=== PATIENT | male | born 1970 | race Caucasian/White ===

== ENCOUNTER 2017-08-27 11:08 | Inpatient (IN) | payer OTHER, MEDICAID ==
[2017-08-27 12:26] LABS: ADD MAN DIFF? NO
[2017-08-27 12:31] LABS: WHITE BLOOD COUNT 11.1 10^3/ul (4.8-10.8)
[2017-08-27 12:31] LABS: BASOPHILS % 0.3 % (0.0-2.0); EOSINOPHILS # 0.1 10^3/ul (0.0-0.5); EOSINOPHILS % 1.2 % (0.0-7.0); HEMATOCRIT 32.1 % (42.0-52.0); HEMOGLOBIN 10.9 g/dl (14.0-18.0); LYMPHOCYTES # 1.4 10^3/ul (0.8-2.9); LYMPHOCYTES % 12.4 % (15.0-51.0); MEAN CORPUSCULAR HEMOGLOBIN 28.5 pg (29.0-33.0); MEAN PLATELET VOLUME 8.4 fl (7.4-10.4); MONOCYTE # 0.7 10^3/ul (0.3-0.9); MONOCYTES % 6.1 % (0.0-11.0); NEUTROPHIL # 8.9 10^3/ul (1.6-7.5); NEUTROPHILS % 79.6 % (39.0-77.0); PLATELET COUNT 277 10^3/UL (140-415); RED BLOOD COUNT 3.82 10^6/ul (4.70-6.10); RED CELL DISTRIBUTION WIDTH 14.9 % (11.5-14.5)
[2017-08-27 12:49] LABS: INR 1.16; PARTIAL THROMBOPLASTIN TIME 34.3 Sec (25.0-35.0); PT RATIO 1.2
[2017-08-27 12:54] LABS: ALANINE AMINOTRANSFERASE 58 IU/L (13-69); ALBUMIN 2.9 g/dl (3.3-4.9); ALBUMIN/GLOBULIN RATIO 0.59; ALKALINE PHOSPHATASE 269 IU/L (42-121); ANION GAP 13 (8-16); ASPARTATE AMINO TRANSFERASE 35 IU/L (15-46); BLOOD UREA NITROGEN 40 mg/dl (7-20); CALCIUM 7.7 mg/dl (8.4-10.2); CARBON DIOXIDE 19 mmol/L (21-31); CHLORIDE 104 mmol/L (97-110); CREATININE 3.78 mg/dl (0.61-1.24); GLUCOSE 89 mg/dl (70-220); POTASSIUM 4.4 mmol/L (3.5-5.1); SODIUM 132 mmol/L (135-144); TOTAL PROTEIN 7.8 g/dl (6.1-8.1)
[2017-08-27 12:57] LABS: ADD UMIC YES; UR ASCORBIC ACID NEGATIVE (NEGATIVE); UR BACTERIA MODERATE /HPF (NONE SEEN); UR BILIRUBIN (Dip) NEGATIVE (NEGATIVE); UR BLOOD (Dip) NEGATIVE (NEGATIVE); UR BUDDING YEAST MODERATE /HPF (NONE SEEN); UR CLARITY TURBID (CLEAR); UR COLOR YELLOW (YELLOW); UR GLUCOSE (Dip) NEGATIVE (NEGATIVE); UR KETONES (Dip) NEGATIVE (NEGATIVE); UR LEUKOCYTE ESTERASE (Dip) 3+ Leu/ul (NEGATIVE); UR NITRITE (Dip) POSITIVE (NEGATIVE); UR NONSQUAMOUS EPITHELIAL CELL 1 /HPF (NONE SEEN); UR RBC 50 /HPF (0-5); UR SPECIFIC GRAVITY (Dip) 1.016 (1.003-1.030); UR TOTAL PROTEIN (Dip) 3+ mg/dl (NEGATIVE); UR UROBILINOGEN (Dip) NEGATIVE (NEGATIVE); UR WBC > 182 /HPF (0-5)
[2017-08-27 13:05] LABS: TROPONIN-I < 0.012 ng/ml (0.00-0.12)
[2017-08-27] MEDS: SODIUM CHLORIDE 0.9% 1L BAG IV* (13:32)
[2017-08-27] MEDS: CEFTRIAXONE 1 GM/50 ML (PMX) 50 ML IVPB (13:32)
[2017-08-27 13:48] LABS: LACTIC ACID 1.7 mmol/L (0.5-2.0)
[2017-08-27] MEDS: OXYCODONE/ACETAMINOPHEN (10/325) TAB PO ×3 (14:18→22:15)
[2017-08-27] MEDS: VANCOMYCIN 1 GM (PMX) 250 ML IVPB (14:20)
[2017-08-27] MEDS ORDERED: NACL 0.9% 3 ML SYG IV (14:30)
[2017-08-27] MEDS ORDERED: ACETAMINOPHEN 325 MG TAB PO ×2 (14:30→15:00)
[2017-08-27 15:12] LABS: LACTIC ACID 1.1 mmol/L (0.5-2.0)
[2017-08-27] MEDS ORDERED: GLUCAGON 1 MG INJ IM (15:30)
[2017-08-27] MEDS ORDERED: GLUCOSE GEL 15 GRAM TUBE BUCCAL (15:30)
[2017-08-27] MEDS ORDERED: DEXTROSE 50% 50 ML SYRINGE IV ×2 (15:30)
[2017-08-27] MEDS ORDERED: GLUCOSE GEL 15 GRAM TUBE PO ×2 (15:30)
[2017-08-27 15:44] LABS: HEMOGLOBIN A1C 6.1 % (0-5.9)
[2017-08-27] MEDS: SOD CHLORIDE 0.9% 1,000 ML IV (18:11)
[2017-08-27] MEDS: LORAZEPAM 1 MG TAB PO (18:27)
[2017-08-27] MEDS: HYDROCODONE/APAP (5/325) TAB PO (18:28)
[2017-08-27] MEDS ORDERED: INSULIN ASPART [NOVOLOG] 3 ML PEN SC (21:00)
[2017-08-27 21:45] LABS: SODIUM,URINE RANDOM 102 mmol/L (30-90)
[2017-08-27 21:45] LABS: CREATININE,URINE RANDOM 37.61 mg/dl (20-370)
[2017-08-27 22:14] LABS: OSMOLALITY,URINE 372 mOsm/kg (250-1200)
[2017-08-27 22:14] LABS: OSMOLALITY 285 mOsm/kg (280-295)
[2017-08-27] MEDS: FLUOXETINE 20 MG CAP PO (22:14)
[2017-08-27] MEDS: TAMSULOSIN (SR) 0.4 MG CAP PO (22:15)
[2017-08-27] MEDS: INSULIN ASPART [NOVOLOG] 3 ML PEN SC (22:27)
[2017-08-28] MEDS: ACCU-CHEK XX (02:00)
[2017-08-28] MEDS: SOD CHLORIDE 0.9% 1,000 ML IV ×3 (02:39→10:23)
[2017-08-28] MEDS: OXYCODONE/ACETAMINOPHEN (10/325) TAB PO ×4 (02:39→17:54)
[2017-08-28 06:11] LABS: ADD MAN DIFF? NO
[2017-08-28 06:35] LABS: WHITE BLOOD COUNT 10.2 10^3/ul (4.8-10.8)
[2017-08-28 06:35] LABS: BASOPHILS % 0.2 % (0.0-2.0); EOSINOPHILS # 0.1 10^3/ul (0.0-0.5); HEMATOCRIT 24.9 % (42.0-52.0); HEMOGLOBIN 8.5 g/dl (14.0-18.0); LYMPHOCYTES # 1.8 10^3/ul (0.8-2.9); LYMPHOCYTES % 17.2 % (15.0-51.0); MEAN CORPUSCULAR HEMOGLOBIN 29.4 pg (29.0-33.0); MEAN CORPUSCULAR HGB CONC 34.1 g/dl (32.0-37.0); MEAN CORPUSCULAR VOLUME 86.2 fl (82.0-101.0); MEAN PLATELET VOLUME 8.7 fl (7.4-10.4); MONOCYTE # 0.8 10^3/ul (0.3-0.9); MONOCYTES % 7.6 % (0.0-11.0); NEUTROPHIL # 7.5 10^3/ul (1.6-7.5); NEUTROPHILS % 73.7 % (39.0-77.0); PLATELET COUNT 243 10^3/UL (140-415); RED BLOOD COUNT 2.89 10^6/ul (4.70-6.10)
[2017-08-28 07:00] LABS: ALANINE AMINOTRANSFERASE 51 IU/L (13-69); ALBUMIN 2.3 g/dl (3.3-4.9); ALBUMIN/GLOBULIN RATIO 0.52; ALKALINE PHOSPHATASE 189 IU/L (42-121); ANION GAP 13 (8-16); ASPARTATE AMINO TRANSFERASE 34 IU/L (15-46); BLOOD UREA NITROGEN 37 mg/dl (7-20); CALCIUM 7.2 mg/dl (8.4-10.2); CARBON DIOXIDE 18 mmol/L (21-31); CHLORIDE 111 mmol/L (97-110); CREATININE 3.51 mg/dl (0.61-1.24); GLUCOSE 123 mg/dl (70-220); POTASSIUM 5.5 mmol/L (3.5-5.1); SODIUM 136 mmol/L (135-144); TOTAL PROTEIN 6.7 g/dl (6.1-8.1)
[2017-08-28] MEDS: ASPIRIN (EC) 325 MG TAB PO (08:37)
[2017-08-28] MEDS: LACTOBACILLUS RHAMNOSUS CAP PO (08:37)
[2017-08-28] MEDS: AMLODIPINE 10 MG TAB PO (08:37)
[2017-08-28] MEDS: FINASTERIDE 5 MG TAB PO (08:38)
[2017-08-28] MEDS: ENOXAPARIN 30 MG/0.3 ML SYG SC (08:39)
[2017-08-28] MEDS: POLYETHYLENE GLYCOL 17 GM PACKET PO (08:39)
[2017-08-28] MEDS ORDERED: FUROSEMIDE 20 MG TAB PO (09:00)
[2017-08-28] MEDS ORDERED: FAMOTIDINE 20 MG TAB PO (09:00)
[2017-08-28] MEDS: LORAZEPAM 1 MG TAB PO ×2 (10:23→22:18)
[2017-08-28] MEDS: CEFTRIAXONE 1 GM/50 ML (PMX) 50 ML IVPB (13:23)
[2017-08-28 13:52] LABS: T4 (THYROXINE) 6.6 ug/dl (5.5-11.0)
[2017-08-28 13:53] LABS: FREE T4 (FREE THYROXINE) 1.15 ng/dl (0.64-1.79)
[2017-08-28] MEDS: INSULIN ASPART [NOVOLOG] 3 ML PEN SC ×2 (17:15→21:00)
[2017-08-28] MEDS: TAMSULOSIN (SR) 0.4 MG CAP PO (21:47)
[2017-08-28] MEDS: FLUOXETINE 20 MG CAP PO (21:48)
[2017-08-29] MEDS: OXYCODONE/ACETAMINOPHEN (10/325) TAB PO ×4 (01:57→19:47)
[2017-08-29] MEDS: SOD CHLORIDE 0.9% 1,000 ML IV ×2 (01:57→10:43)
[2017-08-29] MEDS: ACCU-CHEK XX (02:00)
[2017-08-29 06:31] LABS: WHITE BLOOD COUNT 9.1 10^3/ul (4.8-10.8)
[2017-08-29 06:31] LABS: ADD MAN DIFF? NO; BASOPHILS % 0.2 % (0.0-2.0); EOSINOPHILS # 0.2 10^3/ul (0.0-0.5); EOSINOPHILS % 2.2 % (0.0-7.0); HEMATOCRIT 24.1 % (42.0-52.0); HEMOGLOBIN 8.1 g/dl (14.0-18.0); LYMPHOCYTES # 1.9 10^3/ul (0.8-2.9); LYMPHOCYTES % 20.9 % (15.0-51.0); MEAN CORPUSCULAR HEMOGLOBIN 28.9 pg (29.0-33.0); MEAN CORPUSCULAR HGB CONC 33.6 g/dl (32.0-37.0); MEAN CORPUSCULAR VOLUME 86.1 fl (82.0-101.0); MEAN PLATELET VOLUME 8.7 fl (7.4-10.4); MONOCYTE # 0.7 10^3/ul (0.3-0.9); MONOCYTES % 7.7 % (0.0-11.0); NEUTROPHIL # 6.3 10^3/ul (1.6-7.5); NEUTROPHILS % 68.7 % (39.0-77.0); PLATELET COUNT 266 10^3/UL (140-415); RED CELL DISTRIBUTION WIDTH 15.1 % (11.5-14.5)
[2017-08-29 06:50] LABS: ANION GAP 13 (8-16); BLOOD UREA NITROGEN 42 mg/dl (7-20); CALCIUM 6.7 mg/dl (8.4-10.2); CARBON DIOXIDE 16 mmol/L (21-31); CHLORIDE 110 mmol/L (97-110); CREATININE 3.32 mg/dl (0.61-1.24); GLUCOSE 200 mg/dl (70-220); MAGNESIUM 1.4 mg/dl (1.7-2.5); POTASSIUM 4.8 mmol/L (3.5-5.1); SODIUM 134 mmol/L (135-144)
[2017-08-29] MEDS: INSULIN ASPART [NOVOLOG] 3 ML PEN SC ×5 (08:32→20:49)
[2017-08-29] MEDS: ENOXAPARIN 30 MG/0.3 ML SYG SC (08:35)
[2017-08-29] MEDS: ASPIRIN (EC) 325 MG TAB PO (08:36)
[2017-08-29] MEDS: LACTOBACILLUS RHAMNOSUS CAP PO (08:38)
[2017-08-29] MEDS: AMLODIPINE 10 MG TAB PO (08:39)
[2017-08-29] MEDS: POLYETHYLENE GLYCOL 17 GM PACKET PO (08:39)
[2017-08-29] MEDS: FINASTERIDE 5 MG TAB PO (10:45)
[2017-08-29] MEDS ORDERED: LEVOFLOXACIN 750 MG TABLET PO (11:00)
[2017-08-29] MEDS: LEVOFLOXACIN 500 MG TAB PO (12:41)
[2017-08-29] MEDS: MAGNESIUM OXIDE 400 MG TAB PO (12:41)
[2017-08-29] MEDS: SENNA TAB PO (15:02)
[2017-08-29] MEDS: LORAZEPAM 1 MG TAB PO ×2 (15:02→22:15)
[2017-08-29] MEDS: FLUOXETINE 20 MG CAP PO (20:48)
[2017-08-29] MEDS: TAMSULOSIN (SR) 0.4 MG CAP PO (20:48)
[2017-08-30] MEDS: ACCU-CHEK XX (01:38)
[2017-08-30] MEDS: OXYCODONE/ACETAMINOPHEN (10/325) TAB PO ×5 (01:42→20:24)
[2017-08-30 06:14] LABS: ANION GAP 12 (8-16); BLOOD UREA NITROGEN 46 mg/dl (7-20); CALCIUM 6.7 mg/dl (8.4-10.2); CARBON DIOXIDE 16 mmol/L (21-31); CHLORIDE 110 mmol/L (97-110); CREATININE 3.25 mg/dl (0.61-1.24); GLUCOSE 145 mg/dl (70-220); MAGNESIUM 1.4 mg/dl (1.7-2.5); SODIUM 133 mmol/L (135-144)
[2017-08-30] MEDS: INSULIN ASPART [NOVOLOG] 3 ML PEN SC ×7 (08:00→20:12)
[2017-08-30] MEDS: ENOXAPARIN 30 MG/0.3 ML SYG SC (08:21)
[2017-08-30] MEDS: POLYETHYLENE GLYCOL 17 GM PACKET PO (08:21)
[2017-08-30] MEDS: LACTOBACILLUS RHAMNOSUS CAP PO (08:21)
[2017-08-30] MEDS: ASPIRIN (EC) 325 MG TAB PO (08:21)
[2017-08-30] MEDS: FINASTERIDE 5 MG TAB PO (08:22)
[2017-08-30] MEDS: AMLODIPINE 10 MG TAB PO (08:23)
[2017-08-30] MEDS: LORAZEPAM 1 MG TAB PO ×2 (13:33→18:33)
[2017-08-30] MEDS: MAGNESIUM SULFATE 2 GM/50 ML 50 ML IVPB (14:52)
[2017-08-30] MEDS: TAMSULOSIN (SR) 0.4 MG CAP PO (20:24)
[2017-08-30] MEDS: FLUOXETINE 20 MG CAP PO (20:25)
[2017-08-30] MEDS: ZOLPIDEM 5 MG TAB PO (21:00)
[2017-08-31] MEDS: ACCU-CHEK XX (00:34)
[2017-08-31] MEDS: OXYCODONE/ACETAMINOPHEN (10/325) TAB PO ×4 (05:11→23:42)
[2017-08-31] MEDS: LEVOFLOXACIN 250 MG TAB PO (05:11)
[2017-08-31 07:38] LABS: ANION GAP 13 (8-16); BLOOD UREA NITROGEN 46 mg/dl (7-20); CALCIUM 7.2 mg/dl (8.4-10.2); CARBON DIOXIDE 16 mmol/L (21-31); CHLORIDE 109 mmol/L (97-110); CREATININE 3.47 mg/dl (0.61-1.24); GLUCOSE 145 mg/dl (70-220); SODIUM 133 mmol/L (135-144)
[2017-08-31] MEDS: INSULIN ASPART [NOVOLOG] 3 ML PEN SC ×7 (08:02→20:10)
[2017-08-31] MEDS: POLYETHYLENE GLYCOL 17 GM PACKET PO (08:29)
[2017-08-31] MEDS: ENOXAPARIN 30 MG/0.3 ML SYG SC (08:30)
[2017-08-31] MEDS: FINASTERIDE 5 MG TAB PO (08:30)
[2017-08-31] MEDS: ASPIRIN (EC) 325 MG TAB PO (08:30)
[2017-08-31] MEDS: LACTOBACILLUS RHAMNOSUS CAP PO (08:30)
[2017-08-31] MEDS: HYDROCODONE/APAP (5/325) TAB PO (08:31)
[2017-08-31] MEDS: AMLODIPINE 10 MG TAB PO (08:32)
[2017-08-31] MEDS: LORAZEPAM 1 MG TAB PO (14:18)
[2017-08-31] MEDS: CEFTRIAXONE 1 GM/50 ML (PMX) 50 ML IVPB (18:00)
[2017-08-31] MEDS: FLUOXETINE 20 MG CAP PO (20:09)
[2017-08-31] MEDS: TAMSULOSIN (SR) 0.4 MG CAP PO (20:09)
[2017-09-01] MEDS: ACCU-CHEK XX (01:17)
[2017-09-01] MEDS: LORAZEPAM 1 MG TAB PO ×2 (05:00→18:19)
[2017-09-01] MEDS: OXYCODONE/ACETAMINOPHEN (10/325) TAB PO ×4 (06:02→20:45)
[2017-09-01 06:48] LABS: ADD MAN DIFF? NO
[2017-09-01 06:51] LABS: BASOPHILS % 0.4 % (0.0-2.0); EOSINOPHILS # 0.2 10^3/ul (0.0-0.5); EOSINOPHILS % 2.6 % (0.0-7.0); HEMATOCRIT 25.6 % (42.0-52.0); HEMOGLOBIN 8.7 g/dl (14.0-18.0); LYMPHOCYTES # 1.9 10^3/ul (0.8-2.9); LYMPHOCYTES % 23.2 % (15.0-51.0); MEAN CORPUSCULAR HEMOGLOBIN 28.9 pg (29.0-33.0); MEAN PLATELET VOLUME 8.6 fl (7.4-10.4); MONOCYTE # 0.7 10^3/ul (0.3-0.9); MONOCYTES % 8.6 % (0.0-11.0); NEUTROPHIL # 5.4 10^3/ul (1.6-7.5); NEUTROPHILS % 64.8 % (39.0-77.0); PLATELET COUNT 229 10^3/UL (140-415); RED BLOOD COUNT 3.01 10^6/ul (4.70-6.10); RED CELL DISTRIBUTION WIDTH 15.1 % (11.5-14.5)
[2017-09-01 06:51] LABS: WHITE BLOOD COUNT 8.4 10^3/ul (4.8-10.8)
[2017-09-01 07:40] LABS: ANION GAP 14 (8-16); BLOOD UREA NITROGEN 48 mg/dl (7-20); CALCIUM 7.2 mg/dl (8.4-10.2); CARBON DIOXIDE 15 mmol/L (21-31); CHLORIDE 109 mmol/L (97-110); CREATININE 3.64 mg/dl (0.61-1.24); GLUCOSE 154 mg/dl (70-220); MAGNESIUM 1.7 mg/dl (1.7-2.5); PHOSPHORUS 7.4 mg/dl (2.5-4.9); POTASSIUM 4.9 mmol/L (3.5-5.1); SODIUM 133 mmol/L (135-144)
[2017-09-01] MEDS: INSULIN ASPART [NOVOLOG] 3 ML PEN SC ×7 (08:00→20:50)
[2017-09-01] MEDS: ENOXAPARIN 30 MG/0.3 ML SYG SC (08:02)
[2017-09-01] MEDS: FINASTERIDE 5 MG TAB PO (08:03)
[2017-09-01] MEDS: ASPIRIN (EC) 325 MG TAB PO (08:03)
[2017-09-01] MEDS: LACTOBACILLUS RHAMNOSUS CAP PO (08:09)
[2017-09-01] MEDS: AMLODIPINE 10 MG TAB PO (08:49)
[2017-09-01] MEDS: POLYETHYLENE GLYCOL 17 GM PACKET PO (08:50)
[2017-09-01] MEDS: CEFTRIAXONE 1 GM/50 ML (PMX) 50 ML IVPB (16:31)
[2017-09-01] MEDS: ONDANSETRON 4 MG INJ IV (18:54)
[2017-09-01] MEDS: TAMSULOSIN (SR) 0.4 MG CAP PO (20:45)
[2017-09-01] MEDS: FLUOXETINE 20 MG CAP PO (20:46)
[2017-09-02] MEDS: ACCU-CHEK XX (02:00)
[2017-09-02] MEDS: OXYCODONE/ACETAMINOPHEN (10/325) TAB PO ×4 (04:26→20:44)
[2017-09-02 06:41] LABS: ANION GAP 14 (8-16); BLOOD UREA NITROGEN 50 mg/dl (7-20); CALCIUM 7.4 mg/dl (8.4-10.2); CARBON DIOXIDE 15 mmol/L (21-31); CHLORIDE 112 mmol/L (97-110); CREATININE 4.14 mg/dl (0.61-1.24); GLUCOSE 134 mg/dl (70-220); MAGNESIUM 1.7 mg/dl (1.7-2.5); PHOSPHORUS 7.5 mg/dl (2.5-4.9); POTASSIUM 5.1 mmol/L (3.5-5.1); SODIUM 136 mmol/L (135-144)
[2017-09-02] MEDS: LORAZEPAM 1 MG TAB PO (07:57)
[2017-09-02] MEDS: INSULIN ASPART [NOVOLOG] 3 ML PEN SC ×7 (07:58→20:50)
[2017-09-02] MEDS: ASPIRIN (EC) 325 MG TAB PO (08:23)
[2017-09-02] MEDS: HYDROCODONE/APAP (5/325) TAB PO ×2 (08:23→17:32)
[2017-09-02] MEDS: FINASTERIDE 5 MG TAB PO (08:23)
[2017-09-02] MEDS: LACTOBACILLUS RHAMNOSUS CAP PO (08:23)
[2017-09-02] MEDS: AMLODIPINE 10 MG TAB PO (08:24)
[2017-09-02] MEDS: ENOXAPARIN 30 MG/0.3 ML SYG SC (08:25)
[2017-09-02] MEDS: POLYETHYLENE GLYCOL 17 GM PACKET PO (08:26)
[2017-09-02] MEDS: ONDANSETRON 4 MG INJ IV ×2 (08:29→17:32)
[2017-09-02 10:10] LABS: PHOSPHORUS 7.3 mg/dl (2.5-4.9)
[2017-09-02 12:01] LABS: CREATININE,URINE RANDOM 66.98 mg/dl (20-370)
[2017-09-02 12:03] LABS: SODIUM,URINE RANDOM 53 mmol/L (30-90)
[2017-09-02 12:20] LABS: PROTEIN URINE > 600.0 mg/dl (0.0-11.9); PROTEIN/CREAT RATIO 8.95 RATIO
[2017-09-02] MEDS: SEVELAMER 800 MG TAB PO (17:32)
[2017-09-02] MEDS: CALCIUM ACETATE 667 MG CAP GTB (17:32)
[2017-09-02] MEDS: CEFTRIAXONE 1 GM/50 ML (PMX) 50 ML IVPB (17:33)
[2017-09-02] MEDS: TAMSULOSIN (SR) 0.4 MG CAP PO (20:44)
[2017-09-02] MEDS: FLUOXETINE 20 MG CAP PO (20:44)
[2017-09-02] MEDS: CITRIC ACID/SODIUM CITRATE 15 ML CUP PO (20:45)
[2017-09-02] MEDS: LIDOCAINE 2% 20 ML UROJET SYRINGE MM (21:30)
[2017-09-02] MEDS: EPOETIN 3000 UNITS/1 ML INJ (ESRD) SC (21:31)
[2017-09-03] MEDS: OXYCODONE/ACETAMINOPHEN (10/325) TAB PO ×5 (01:43→22:07)
[2017-09-03] MEDS: ACCU-CHEK XX (02:00)
[2017-09-03 03:41] LABS: PROTEIN, TOTAL 6.1 g/dL (6.1-8.1)
[2017-09-03 05:13] LABS: HAAIG REFLEX REFLEX FILED
[2017-09-03 07:23] LABS: HEPATITIS B SURFACE ANTIGEN NEGATIVE (NEGATIVE)
[2017-09-03 07:40] LABS: HEPATITIS B CORE ANTIBODY NEGATIVE (NEGATIVE)
[2017-09-03 07:43] LABS: HEPATITIS C VIRAL ANTIBODY REACTIVE (NEGATIVE); HIV 1&2 ANTIBODY NEGATIVE (NEGATIVE)
[2017-09-03] MEDS: INSULIN ASPART [NOVOLOG] 3 ML PEN SC ×7 (07:57→20:45)
[2017-09-03] MEDS: ASPIRIN (EC) 325 MG TAB PO (08:13)
[2017-09-03] MEDS: CITRIC ACID/SODIUM CITRATE 15 ML CUP PO ×3 (08:13→20:44)
[2017-09-03] MEDS: CALCIUM ACETATE 667 MG CAP GTB ×3 (08:13→17:08)
[2017-09-03] MEDS: FINASTERIDE 5 MG TAB PO (08:13)
[2017-09-03] MEDS: POLYETHYLENE GLYCOL 17 GM PACKET PO ×2 (08:14→08:19)
[2017-09-03] MEDS: AMLODIPINE 10 MG TAB PO (08:14)
[2017-09-03] MEDS: LACTOBACILLUS RHAMNOSUS CAP PO (08:14)
[2017-09-03] MEDS: ENOXAPARIN 30 MG/0.3 ML SYG SC (08:15)
[2017-09-03] MEDS: SEVELAMER 800 MG TAB PO ×3 (08:18→17:08)
[2017-09-03 08:35] LABS: ADD UMIC YES; UR ASCORBIC ACID NEGATIVE (NEGATIVE); UR BACTERIA FEW /HPF (NONE SEEN); UR BILIRUBIN (Dip) NEGATIVE (NEGATIVE); UR BLOOD (Dip) 2+ mg/dL (NEGATIVE); UR BUDDING YEAST MANY /HPF (NONE SEEN); UR CLARITY SLIGHTLY CLOUDY (CLEAR); UR COLOR YELLOW (YELLOW); UR GLUCOSE (Dip) 2+ mg/dL (NEGATIVE); UR KETONES (Dip) NEGATIVE (NEGATIVE); UR LEUKOCYTE ESTERASE (Dip) NEGATIVE Leu/ul (NEGATIVE); UR NITRITE (Dip) NEGATIVE (NEGATIVE); UR RBC 179 /HPF (0-5); UR SPECIFIC GRAVITY (Dip) 1.014 (1.003-1.030); UR TOTAL PROTEIN (Dip) 3+ mg/dl (NEGATIVE); UR UROBILINOGEN (Dip) NEGATIVE (NEGATIVE); UR WBC 4 /HPF (0-5)
[2017-09-03] MEDS: HYDROCODONE/APAP (5/325) TAB PO ×2 (10:14→18:01)
[2017-09-03] MEDS: LORAZEPAM 1 MG TAB PO (13:46)
[2017-09-03 16:17] LABS: ALBUMIN 2.1 g/dL (3.8-4.8); ALPHA-1-GLOBULINS 0.3 g/dL (0.2-0.3); ALPHA-2-GLOBULINS 0.7 g/dL (0.5-0.9); BETA 2 GLOBULINS 0.5 g/dL (0.2-0.5); BETA GLOBULINS 0.4 g/dL (0.4-0.6); GAMMA GLOBULINS 2.2 g/dL (0.8-1.7)
[2017-09-03 16:20] LABS: ANION GAP 13 (8-16); BLOOD UREA NITROGEN 48 mg/dl (7-20); CARBON DIOXIDE 16 mmol/L (21-31); CHLORIDE 111 mmol/L (97-110); CREATININE 4.09 mg/dl (0.61-1.24); GLUCOSE 94 mg/dl (70-220); POTASSIUM 4.8 mmol/L (3.5-5.1); SODIUM 135 mmol/L (135-144)
[2017-09-03] MEDS: CEFTRIAXONE 1 GM/50 ML (PMX) 50 ML IVPB (17:08)
[2017-09-03] MEDS: FLUOXETINE 20 MG CAP PO (20:44)
[2017-09-03] MEDS: GUAIFENESIN LA 600 MG TABSR PO (20:44)
[2017-09-03] MEDS: ALBUTEROL/IPRATROPIUM (NEB) 3 ML AMP HHN (20:53)
[2017-09-03 22:47] LABS: PTH CALCIUM 6.8 mg/dL (8.6-10.3)
[2017-09-04] MEDS: LORAZEPAM 1 MG TAB PO ×3 (01:37→20:58)
[2017-09-04] MEDS: ACCU-CHEK XX (02:00)
[2017-09-04] MEDS: PANTOPRAZOLE (EC) 40 MG TAB PO (03:48)
[2017-09-04] MEDS: OXYCODONE/ACETAMINOPHEN (10/325) TAB PO ×4 (07:56→21:53)
[2017-09-04] MEDS: CALCIUM ACETATE 667 MG CAP GTB ×3 (07:59→17:10)
[2017-09-04] MEDS: INSULIN ASPART [NOVOLOG] 3 ML PEN SC ×7 (08:00→21:01)
[2017-09-04] MEDS: SEVELAMER 800 MG TAB PO ×3 (08:00→17:10)
[2017-09-04] MEDS: POLYETHYLENE GLYCOL 17 GM PACKET PO ×2 (08:49→09:00)
[2017-09-04] MEDS: ASPIRIN (EC) 325 MG TAB PO (08:49)
[2017-09-04] MEDS: LACTOBACILLUS RHAMNOSUS CAP PO (08:49)
[2017-09-04] MEDS: CITRIC ACID/SODIUM CITRATE 15 ML CUP PO ×3 (08:50→20:58)
[2017-09-04] MEDS: GUAIFENESIN LA 600 MG TABSR PO ×2 (08:50→20:58)
[2017-09-04] MEDS: AMLODIPINE 10 MG TAB PO (08:50)
[2017-09-04] MEDS: ENOXAPARIN 30 MG/0.3 ML SYG SC (08:53)
[2017-09-04] MEDS: ALBUTEROL/IPRATROPIUM (NEB) 3 ML AMP HHN ×3 (14:16→20:15)
[2017-09-04 15:37] LABS: CREATININE, RANDOM URINE 64 mg/dL (20-370); PROTEIN/CREATININE RATIO 8031 mg/g creat (22-128)
[2017-09-04] MEDS: EPOETIN 3000 UNITS/1 ML INJ (ESRD) SC (16:34)
[2017-09-04] MEDS: CEFTRIAXONE 1 GM/50 ML (PMX) 50 ML IVPB (17:11)
[2017-09-04] MEDS: HYDROCODONE/APAP (5/325) TAB PO (19:34)
[2017-09-04] MEDS: FLUOXETINE 20 MG CAP PO (20:58)
[2017-09-05] MEDS: ALBUTEROL/IPRATROPIUM (NEB) 3 ML AMP HHN ×6 (00:45→20:03)
[2017-09-05] MEDS: LORAZEPAM 1 MG TAB PO ×4 (01:11→22:26)
[2017-09-05] MEDS: ACCU-CHEK XX ×2 (02:00→20:48)
[2017-09-05 05:15] LABS: ANION GAP 13 (8-16); BLOOD UREA NITROGEN 46 mg/dl (7-20); CALCIUM 7.1 mg/dl (8.4-10.2); CARBON DIOXIDE 17 mmol/L (21-31); CHLORIDE 109 mmol/L (97-110); CREATININE 4.01 mg/dl (0.61-1.24); GLUCOSE 127 mg/dl (70-220); MAGNESIUM 1.7 mg/dl (1.7-2.5); SODIUM 134 mmol/L (135-144)
[2017-09-05] MEDS: PANTOPRAZOLE (EC) 40 MG TAB PO (06:40)
[2017-09-05] MEDS: OXYCODONE/ACETAMINOPHEN (10/325) TAB PO ×3 (06:41→23:17)
[2017-09-05] MEDS: INSULIN ASPART [NOVOLOG] 3 ML PEN SC ×7 (08:00→20:48)
[2017-09-05] MEDS: CALCIUM ACETATE 667 MG CAP GTB ×3 (08:13→17:41)
[2017-09-05] MEDS: SEVELAMER 800 MG TAB PO ×3 (08:14→17:41)
[2017-09-05] MEDS: GUAIFENESIN LA 600 MG TABSR PO ×2 (08:24→20:47)
[2017-09-05] MEDS: ASPIRIN (EC) 325 MG TAB PO (08:24)
[2017-09-05] MEDS: AMLODIPINE 10 MG TAB PO (08:24)
[2017-09-05] MEDS: HYDROCODONE/APAP (5/325) TAB PO ×2 (08:25→12:32)
[2017-09-05] MEDS: LACTOBACILLUS RHAMNOSUS CAP PO (08:25)
[2017-09-05] MEDS: CITRIC ACID/SODIUM CITRATE 15 ML CUP PO ×3 (08:26→20:46)
[2017-09-05] MEDS: POLYETHYLENE GLYCOL 17 GM PACKET PO (08:30)
[2017-09-05] MEDS: ENOXAPARIN 30 MG/0.3 ML SYG SC (12:23)
[2017-09-05] MEDS: FUROSEMIDE 40 MG INJ IV (16:49)
[2017-09-05] MEDS: CEFTRIAXONE 1 GM/50 ML (PMX) 50 ML IVPB (16:53)
[2017-09-05 17:07] LABS: HAAIG REFLEX REFLEX FILED
[2017-09-05 17:47] LABS: HEPATITIS B SURFACE ANTIGEN NEGATIVE (NEGATIVE)
[2017-09-05 18:05] LABS: HEPATITIS B CORE ANTIBODY NEGATIVE (NEGATIVE)
[2017-09-05 19:07] LABS: HEPATITIS C VIRAL ANTIBODY REACTIVE (NEGATIVE)
[2017-09-05] MEDS: FLUOXETINE 20 MG CAP PO (20:48)
[2017-09-06] MEDS: ALBUTEROL/IPRATROPIUM (NEB) 3 ML AMP HHN ×6 (00:58→20:56)
[2017-09-06] MEDS: OXYCODONE/ACETAMINOPHEN (10/325) TAB PO ×3 (04:06→17:15)
[2017-09-06] MEDS: PANTOPRAZOLE (EC) 40 MG TAB PO (05:59)
[2017-09-06] MEDS: LORAZEPAM 1 MG TAB PO ×2 (05:59→21:23)
[2017-09-06 06:47] LABS: ANION GAP 15 (8-16); BLOOD UREA NITROGEN 50 mg/dl (7-20); CARBON DIOXIDE 17 mmol/L (21-31); CHLORIDE 107 mmol/L (97-110); CREATININE 3.85 mg/dl (0.61-1.24); GLUCOSE 128 mg/dl (70-220); POTASSIUM 4.5 mmol/L (3.5-5.1); SODIUM 134 mmol/L (135-144)
[2017-09-06 06:52] LABS: MAGNESIUM 1.7 mg/dl (1.7-2.5)
[2017-09-06] MEDS: INSULIN ASPART [NOVOLOG] 3 ML PEN SC ×7 (08:00→21:00)
[2017-09-06] MEDS: CALCIUM ACETATE 667 MG CAP GTB ×3 (09:01→17:10)
[2017-09-06] MEDS: SEVELAMER 800 MG TAB PO ×4 (09:01→17:56)
[2017-09-06] MEDS: CITRIC ACID/SODIUM CITRATE 15 ML CUP PO ×3 (09:03→21:21)
[2017-09-06] MEDS: FUROSEMIDE 40 MG INJ IV (09:03)
[2017-09-06] MEDS: POLYETHYLENE GLYCOL 17 GM PACKET PO (09:04)
[2017-09-06] MEDS: ASPIRIN (EC) 325 MG TAB PO (09:04)
[2017-09-06] MEDS: GUAIFENESIN LA 600 MG TABSR PO ×2 (09:04→21:22)
[2017-09-06] MEDS: LACTOBACILLUS RHAMNOSUS CAP PO (09:04)
[2017-09-06] MEDS: AMLODIPINE 10 MG TAB PO (09:05)
[2017-09-06] MEDS: ENOXAPARIN 30 MG/0.3 ML SYG SC (09:06)
[2017-09-06] MEDS: CEFTRIAXONE 1 GM/50 ML (PMX) 50 ML IVPB (17:11)
[2017-09-06] MEDS: FLUOXETINE 20 MG CAP PO (21:21)
[2017-09-07] MEDS: ALBUTEROL/IPRATROPIUM (NEB) 3 ML AMP HHN ×6 (02:00→21:22)
[2017-09-07] MEDS: ACCU-CHEK XX (02:00)
[2017-09-07] MEDS: OXYCODONE/ACETAMINOPHEN (10/325) TAB PO ×4 (02:41→22:13)
[2017-09-07] MEDS: PANTOPRAZOLE (EC) 40 MG TAB PO (06:04)
[2017-09-07 06:49] LABS: ANION GAP 15 (8-16); BLOOD UREA NITROGEN 54 mg/dl (7-20); CALCIUM 7.2 mg/dl (8.4-10.2); CARBON DIOXIDE 18 mmol/L (21-31); CHLORIDE 106 mmol/L (97-110); CREATININE 4.12 mg/dl (0.61-1.24); GLUCOSE 117 mg/dl (70-220); POTASSIUM 4.5 mmol/L (3.5-5.1); SODIUM 134 mmol/L (135-144)
[2017-09-07] MEDS: SEVELAMER 800 MG TAB PO ×4 (07:35→17:29)
[2017-09-07] MEDS: INSULIN ASPART [NOVOLOG] 3 ML PEN SC ×7 (07:35→20:53)
[2017-09-07] MEDS: CALCIUM ACETATE 667 MG CAP GTB ×4 (07:35→17:29)
[2017-09-07] MEDS: FUROSEMIDE 40 MG INJ IV (08:11)
[2017-09-07] MEDS: CITRIC ACID/SODIUM CITRATE 15 ML CUP PO ×3 (09:00→20:51)
[2017-09-07] MEDS: AMLODIPINE 10 MG TAB PO ×2 (09:00→14:28)
[2017-09-07] MEDS: LACTOBACILLUS RHAMNOSUS CAP PO ×2 (09:00→14:27)
[2017-09-07] MEDS: GUAIFENESIN LA 600 MG TABSR PO ×2 (09:00→20:51)
[2017-09-07] MEDS: ENOXAPARIN 30 MG/0.3 ML SYG SC (09:00)
[2017-09-07] MEDS: POLYETHYLENE GLYCOL 17 GM PACKET PO (09:00)
[2017-09-07] MEDS: ASPIRIN (EC) 325 MG TAB PO ×2 (09:00→14:28)
[2017-09-07] MEDS: LORAZEPAM 1 MG TAB PO ×2 (13:35→20:51)
[2017-09-07] MEDS: EPOETIN 3000 UNITS/1 ML INJ (ESRD) SC (17:32)
[2017-09-07] MEDS: FLUOXETINE 20 MG CAP PO (20:51)
[2017-09-08] MEDS: ALBUTEROL/IPRATROPIUM (NEB) 3 ML AMP HHN ×6 (01:23→20:03)
[2017-09-08] MEDS: ACCU-CHEK XX (02:15)
[2017-09-08] MEDS: OXYCODONE/ACETAMINOPHEN (10/325) TAB PO ×4 (04:45→21:48)
[2017-09-08] MEDS: PANTOPRAZOLE (EC) 40 MG TAB PO (06:00)
[2017-09-08] MEDS: CALCIUM ACETATE 667 MG CAP GTB ×3 (07:35→17:23)
[2017-09-08] MEDS: SEVELAMER 800 MG TAB PO ×3 (07:35→17:23)
[2017-09-08] MEDS: INSULIN ASPART [NOVOLOG] 3 ML PEN SC ×7 (07:35→21:00)
[2017-09-08 07:56] LABS: PTH INTACT 220 pg/mL (14-64)
[2017-09-08] MEDS: FUROSEMIDE 40 MG INJ IV (08:26)
[2017-09-08] MEDS: GUAIFENESIN LA 600 MG TABSR PO ×3 (08:30→20:38)
[2017-09-08] MEDS: POLYETHYLENE GLYCOL 17 GM PACKET PO ×2 (08:30→12:44)
[2017-09-08] MEDS: CITRIC ACID/SODIUM CITRATE 15 ML CUP PO ×3 (08:30→20:38)
[2017-09-08] MEDS: LACTOBACILLUS RHAMNOSUS CAP PO ×2 (08:30→12:42)
[2017-09-08] MEDS: ASPIRIN (EC) 325 MG TAB PO ×2 (08:30→12:43)
[2017-09-08] MEDS: ENOXAPARIN 30 MG/0.3 ML SYG SC ×2 (08:31→12:45)
[2017-09-08] MEDS: AMLODIPINE 10 MG TAB PO ×2 (08:31→12:44)
[2017-09-08 08:38] LABS: ANION GAP 15 (8-16); BLOOD UREA NITROGEN 56 mg/dl (7-20); CALCIUM 7.2 mg/dl (8.4-10.2); CARBON DIOXIDE 21 mmol/L (21-31); CHLORIDE 103 mmol/L (97-110); CREATININE 3.94 mg/dl (0.61-1.24); GLUCOSE 170 mg/dl (70-220); POTASSIUM 4.4 mmol/L (3.5-5.1); SODIUM 135 mmol/L (135-144)
[2017-09-08] MEDS: LORAZEPAM 1 MG TAB PO (13:29)
[2017-09-08] MEDS: HYDROCODONE/APAP (5/325) TAB PO (20:25)
[2017-09-08] MEDS: FLUOXETINE 20 MG CAP PO (20:38)
[2017-09-09] MEDS: ALBUTEROL/IPRATROPIUM (NEB) 3 ML AMP HHN ×6 (00:01→20:39)
[2017-09-09] MEDS: LORAZEPAM 1 MG TAB PO ×2 (01:50→08:07)
[2017-09-09] MEDS: ACCU-CHEK XX (02:00)
[2017-09-09] MEDS: PANTOPRAZOLE (EC) 40 MG TAB PO (05:56)
[2017-09-09] MEDS: OXYCODONE/ACETAMINOPHEN (10/325) TAB PO ×3 (06:06→20:30)
[2017-09-09 06:47] LABS: ALBUMIN 2.4 g/dl (3.3-4.9); ANION GAP 14 (8-16); BLOOD UREA NITROGEN 61 mg/dl (7-20); CALCIUM 6.7 mg/dl (8.4-10.2); CARBON DIOXIDE 22 mmol/L (21-31); CHLORIDE 102 mmol/L (97-110); CREATININE 3.97 mg/dl (0.61-1.24); GLUCOSE 116 mg/dl (70-220); MAGNESIUM 1.6 mg/dl (1.7-2.5); POTASSIUM 4.7 mmol/L (3.5-5.1); SODIUM 133 mmol/L (135-144)
[2017-09-09] MEDS: CALCIUM ACETATE 667 MG CAP GTB ×3 (07:35→17:04)
[2017-09-09] MEDS: INSULIN ASPART [NOVOLOG] 3 ML PEN SC ×7 (07:35→20:18)
[2017-09-09] MEDS: SEVELAMER 800 MG TAB PO ×3 (07:35→17:04)
[2017-09-09] MEDS: CITRIC ACID/SODIUM CITRATE 15 ML CUP PO ×3 (08:10→20:24)
[2017-09-09] MEDS: FUROSEMIDE 40 MG INJ IV (08:10)
[2017-09-09] MEDS: POLYETHYLENE GLYCOL 17 GM PACKET PO (08:10)
[2017-09-09] MEDS: LACTOBACILLUS RHAMNOSUS CAP PO (08:10)
[2017-09-09] MEDS: ASPIRIN (EC) 325 MG TAB PO (08:10)
[2017-09-09] MEDS: AMLODIPINE 10 MG TAB PO (08:11)
[2017-09-09] MEDS: ENOXAPARIN 30 MG/0.3 ML SYG SC (08:11)
[2017-09-09] MEDS: GUAIFENESIN LA 600 MG TABSR PO ×2 (08:11→20:24)
[2017-09-09] MEDS: MAGNESIUM SULFATE 2 GM/50 ML 50 ML IVPB (10:40)
[2017-09-09] MEDS ORDERED: LIDOCAINE 1% (MDV) 20 ML INJ (13:27)
[2017-09-09] MEDS ORDERED: FENTAnyl 50 MCG/ML VIAL (13:28)
[2017-09-09] MEDS ORDERED: MIDAZOLAM 1 MG/ML 2 ML INJ (13:28)
[2017-09-09] MEDS ORDERED: CEFAZOLIN 1 GM/50 ML (PMX) 50 ML IVPB (13:47)
[2017-09-09] MEDS ORDERED: HEPARIN 1000 UNITS/ML 10 ML INJ (14:00)
[2017-09-09] MEDS: MANNITOL 25% 50 ML INJ IV* ×2 (16:06→17:14)
[2017-09-09] MEDS: EPOETIN 3000 UNITS/1 ML INJ (ESRD) SC (17:05)
[2017-09-09] MEDS: FLUOXETINE 20 MG CAP PO (20:25)
[2017-09-10] MEDS: ALBUTEROL/IPRATROPIUM (NEB) 3 ML AMP HHN ×6 (01:39→20:55)
[2017-09-10] MEDS: LORAZEPAM 1 MG TAB PO ×3 (01:58→18:16)
[2017-09-10] MEDS: ACCU-CHEK XX (02:00)
[2017-09-10] MEDS: OXYCODONE/ACETAMINOPHEN (10/325) TAB PO ×5 (03:08→21:17)
[2017-09-10] MEDS: PANTOPRAZOLE (EC) 40 MG TAB PO (06:01)
[2017-09-10 07:28] LABS: ALBUMIN 2.5 g/dl (3.3-4.9); ANION GAP 15 (8-16); BLOOD UREA NITROGEN 46 mg/dl (7-20); CALCIUM 7.4 mg/dl (8.4-10.2); CARBON DIOXIDE 25 mmol/L (21-31); CHLORIDE 102 mmol/L (97-110); CREATININE 3.09 mg/dl (0.61-1.24); GLUCOSE 154 mg/dl (70-220); MAGNESIUM 1.9 mg/dl (1.7-2.5); PHOSPHORUS 4.4 mg/dl (2.5-4.9); POTASSIUM 4.4 mmol/L (3.5-5.1); SODIUM 138 mmol/L (135-144)
[2017-09-10] MEDS: GUAIFENESIN LA 600 MG TABSR PO ×2 (08:01→21:17)
[2017-09-10] MEDS: CITRIC ACID/SODIUM CITRATE 15 ML CUP PO ×2 (08:01→12:30)
[2017-09-10] MEDS: ASPIRIN (EC) 325 MG TAB PO (08:02)
[2017-09-10] MEDS: LACTOBACILLUS RHAMNOSUS CAP PO (08:02)
[2017-09-10] MEDS: SEVELAMER 800 MG TAB PO ×2 (08:02→12:20)
[2017-09-10] MEDS: CALCIUM ACETATE 667 MG CAP GTB ×3 (08:02→17:06)
[2017-09-10] MEDS: POLYETHYLENE GLYCOL 17 GM PACKET PO (08:02)
[2017-09-10] MEDS: ENOXAPARIN 30 MG/0.3 ML SYG SC (08:03)
[2017-09-10] MEDS: INSULIN ASPART [NOVOLOG] 3 ML PEN SC ×7 (08:04→21:00)
[2017-09-10] MEDS: FUROSEMIDE 40 MG INJ IV (09:00)
[2017-09-10] MEDS: AMLODIPINE 10 MG TAB PO (09:00)
[2017-09-10] MEDS: FLUOXETINE 20 MG CAP PO (21:17)
[2017-09-11] MEDS: ALBUTEROL/IPRATROPIUM (NEB) 3 ML AMP HHN ×6 (00:01→21:07)
[2017-09-11] MEDS: OXYCODONE/ACETAMINOPHEN (10/325) TAB PO ×4 (01:17→21:59)
[2017-09-11] MEDS: ACCU-CHEK XX (02:00)
[2017-09-11] MEDS: LORAZEPAM 1 MG TAB PO ×2 (03:54→21:04)
[2017-09-11] MEDS: PANTOPRAZOLE (EC) 40 MG TAB PO (05:23)
[2017-09-11 06:33] LABS: HEMOGLOBIN 7.7 g/dl (14.0-18.0)
[2017-09-11 06:33] LABS: HEMATOCRIT 23.2 % (42.0-52.0)
[2017-09-11 07:08] LABS: ALBUMIN 2.6 g/dl (3.3-4.9); ANION GAP 13 (8-16); BLOOD UREA NITROGEN 37 mg/dl (7-20); CALCIUM 7.3 mg/dl (8.4-10.2); CARBON DIOXIDE 25 mmol/L (21-31); CHLORIDE 105 mmol/L (97-110); CREATININE 2.68 mg/dl (0.61-1.24); GLUCOSE 164 mg/dl (70-220); MAGNESIUM 1.8 mg/dl (1.7-2.5); PHOSPHORUS 4.2 mg/dl (2.5-4.9); POTASSIUM 4.6 mmol/L (3.5-5.1); SODIUM 138 mmol/L (135-144)
[2017-09-11] MEDS: INSULIN ASPART [NOVOLOG] 3 ML PEN SC ×7 (08:17→21:00)
[2017-09-11] MEDS: FUROSEMIDE 40 MG/4 ML CUP GTB (08:18)
[2017-09-11] MEDS: LACTOBACILLUS RHAMNOSUS CAP PO (08:19)
[2017-09-11] MEDS: ASPIRIN (EC) 325 MG TAB PO (08:19)
[2017-09-11] MEDS: CALCIUM ACETATE 667 MG CAP GTB ×3 (08:19→17:30)
[2017-09-11] MEDS: GUAIFENESIN LA 600 MG TABSR PO ×2 (08:19→20:58)
[2017-09-11] MEDS: AMLODIPINE 10 MG TAB PO (08:20)
[2017-09-11] MEDS: POLYETHYLENE GLYCOL 17 GM PACKET PO (08:20)
[2017-09-11] MEDS: ENOXAPARIN 30 MG/0.3 ML SYG SC (08:21)
[2017-09-11] MEDS: HYDROCODONE/APAP (5/325) TAB PO (08:34)
[2017-09-11] MEDS: EPOETIN 3000 UNITS/1 ML INJ (ESRD) SC (17:30)
[2017-09-11] MEDS: FLUOXETINE 20 MG CAP PO (20:59)
[2017-09-12] MEDS: ALBUTEROL/IPRATROPIUM (NEB) 3 ML AMP HHN ×6 (00:28→20:47)
[2017-09-12] MEDS: OXYCODONE/ACETAMINOPHEN (10/325) TAB PO ×5 (02:00→20:45)
[2017-09-12] MEDS: ACCU-CHEK XX (02:00)
[2017-09-12] MEDS: PANTOPRAZOLE (EC) 40 MG TAB PO (05:48)
[2017-09-12 06:26] LABS: ANION GAP 13 (8-16); BLOOD UREA NITROGEN 46 mg/dl (7-20); CALCIUM 7.4 mg/dl (8.4-10.2); CARBON DIOXIDE 24 mmol/L (21-31); CHLORIDE 104 mmol/L (97-110); CREATININE 3.09 mg/dl (0.61-1.24); GLUCOSE 137 mg/dl (70-220); POTASSIUM 4.9 mmol/L (3.5-5.1); SODIUM 136 mmol/L (135-144)
[2017-09-12] MEDS: INSULIN ASPART [NOVOLOG] 3 ML PEN SC ×7 (08:00→20:49)
[2017-09-12] MEDS: FUROSEMIDE 40 MG/4 ML CUP GTB (08:14)
[2017-09-12] MEDS: LACTOBACILLUS RHAMNOSUS CAP PO (08:15)
[2017-09-12] MEDS: LORAZEPAM 1 MG TAB PO (08:15)
[2017-09-12] MEDS: AMLODIPINE 10 MG TAB PO (08:15)
[2017-09-12] MEDS: CALCIUM ACETATE 667 MG CAP GTB ×3 (08:15→16:38)
[2017-09-12] MEDS: ASPIRIN (EC) 325 MG TAB PO (08:15)
[2017-09-12] MEDS: ENOXAPARIN 30 MG/0.3 ML SYG SC (08:17)
[2017-09-12] MEDS: POLYETHYLENE GLYCOL 17 GM PACKET PO (09:00)
[2017-09-12] MEDS: GUAIFENESIN LA 600 MG TABSR PO ×2 (10:24→20:39)
[2017-09-12 13:19] LABS: HEMATOCRIT 24.8 % (42.0-52.0); HEMOGLOBIN 8.1 g/dl (14.0-18.0)
[2017-09-12] MEDS: FLUOXETINE 20 MG CAP PO (20:39)
[2017-09-13] MEDS: ALBUTEROL/IPRATROPIUM (NEB) 3 ML AMP HHN ×6 (00:54→20:44)
[2017-09-13] MEDS: OXYCODONE/ACETAMINOPHEN (10/325) TAB PO ×5 (01:15→21:04)
[2017-09-13] MEDS: ACCU-CHEK XX (02:00)
[2017-09-13] MEDS ORDERED: ALBUTEROL/IPRATROPIUM (NEB) 3 ML AMP HHN (02:00)
[2017-09-13] MEDS: LORAZEPAM 1 MG TAB PO ×2 (04:56→22:16)
[2017-09-13] MEDS: PANTOPRAZOLE (EC) 40 MG TAB PO (05:32)
[2017-09-13 05:51] LABS: ADD MAN DIFF? NO
[2017-09-13 06:03] LABS: WHITE BLOOD COUNT 7.2 10^3/ul (4.8-10.8)
[2017-09-13 06:03] LABS: BASOPHILS % 0.3 % (0.0-2.0); EOSINOPHILS # 0.4 10^3/ul (0.0-0.5); HEMATOCRIT 25.8 % (42.0-52.0); HEMOGLOBIN 8.4 g/dl (14.0-18.0); LYMPHOCYTES # 1.6 10^3/ul (0.8-2.9); LYMPHOCYTES % 22.6 % (15.0-51.0); MEAN CORPUSCULAR HEMOGLOBIN 27.8 pg (29.0-33.0); MEAN CORPUSCULAR HGB CONC 32.6 g/dl (32.0-37.0); MEAN CORPUSCULAR VOLUME 85.4 fl (82.0-101.0); MEAN PLATELET VOLUME 9.2 fl (7.4-10.4); MONOCYTE # 0.5 10^3/ul (0.3-0.9); MONOCYTES % 7.4 % (0.0-11.0); NEUTROPHIL # 4.6 10^3/ul (1.6-7.5); NEUTROPHILS % 64.3 % (39.0-77.0); PLATELET COUNT 173 10^3/UL (140-415); RED BLOOD COUNT 3.02 10^6/ul (4.70-6.10); RED CELL DISTRIBUTION WIDTH 15.2 % (11.5-14.5)
[2017-09-13 06:55] LABS: ANION GAP 13 (8-16); BLOOD UREA NITROGEN 33 mg/dl (7-20); CALCIUM 7.6 mg/dl (8.4-10.2); CARBON DIOXIDE 24 mmol/L (21-31); CHLORIDE 103 mmol/L (97-110); CREATININE 2.66 mg/dl (0.61-1.24); GLUCOSE 204 mg/dl (70-220); POTASSIUM 4.2 mmol/L (3.5-5.1); SODIUM 136 mmol/L (135-144)
[2017-09-13 07:22] LABS: ALBUMIN 2.4 g/dl (3.3-4.9); ANION GAP 12 (8-16); BLOOD UREA NITROGEN 34 mg/dl (7-20); CALCIUM 7.5 mg/dl (8.4-10.2); CARBON DIOXIDE 23 mmol/L (21-31); CHLORIDE 104 mmol/L (97-110); CREATININE 2.53 mg/dl (0.61-1.24); GLUCOSE 199 mg/dl (70-220); MAGNESIUM 1.7 mg/dl (1.7-2.5); PHOSPHORUS 4.6 mg/dl (2.5-4.9); POTASSIUM 4.3 mmol/L (3.5-5.1); SODIUM 135 mmol/L (135-144)
[2017-09-13] MEDS: LACTOBACILLUS RHAMNOSUS CAP PO (08:17)
[2017-09-13] MEDS: CALCIUM ACETATE 667 MG CAP GTB ×3 (08:17→16:59)
[2017-09-13] MEDS: GUAIFENESIN LA 600 MG TABSR PO ×2 (08:17→20:40)
[2017-09-13] MEDS: ASPIRIN (EC) 325 MG TAB PO (08:17)
[2017-09-13] MEDS: AMLODIPINE 10 MG TAB PO (08:18)
[2017-09-13] MEDS: POLYETHYLENE GLYCOL 17 GM PACKET PO (08:18)
[2017-09-13] MEDS: FUROSEMIDE 40 MG/4 ML CUP GTB (08:18)
[2017-09-13] MEDS: INSULIN ASPART [NOVOLOG] 3 ML PEN SC ×7 (08:20→20:41)
[2017-09-13] MEDS: ENOXAPARIN 30 MG/0.3 ML SYG SC (08:23)
[2017-09-13] MEDS: ONDANSETRON 4 MG TAB PO (17:06)
[2017-09-13] MEDS: FLUOXETINE 20 MG CAP PO (20:40)
[2017-09-14] MEDS: ALBUTEROL/IPRATROPIUM (NEB) 3 ML AMP HHN ×6 (00:38→23:00)
[2017-09-14] MEDS: OXYCODONE/ACETAMINOPHEN (10/325) TAB PO ×5 (01:30→21:19)
[2017-09-14] MEDS: ACCU-CHEK XX (02:00)
[2017-09-14] MEDS: PANTOPRAZOLE (EC) 40 MG TAB PO (06:03)
[2017-09-14 06:43] LABS: ADD MAN DIFF? NO
[2017-09-14 06:49] LABS: BASOPHILS % 0.2 % (0.0-2.0); EOSINOPHILS # 0.4 10^3/ul (0.0-0.5); EOSINOPHILS % 4.1 % (0.0-7.0); HEMATOCRIT 23.5 % (42.0-52.0); HEMOGLOBIN 7.8 g/dl (14.0-18.0); LYMPHOCYTES # 1.7 10^3/ul (0.8-2.9); LYMPHOCYTES % 17.6 % (15.0-51.0); MEAN CORPUSCULAR HEMOGLOBIN 28.2 pg (29.0-33.0); MEAN CORPUSCULAR HGB CONC 33.2 g/dl (32.0-37.0); MEAN CORPUSCULAR VOLUME 84.8 fl (82.0-101.0); MEAN PLATELET VOLUME 8.9 fl (7.4-10.4); MONOCYTES % 10.1 % (0.0-11.0); NEUTROPHIL # 6.5 10^3/ul (1.6-7.5); NEUTROPHILS % 67.4 % (39.0-77.0); PLATELET COUNT 156 10^3/UL (140-415); RED BLOOD COUNT 2.77 10^6/ul (4.70-6.10); RED CELL DISTRIBUTION WIDTH 15.2 % (11.5-14.5)
[2017-09-14 06:49] LABS: WHITE BLOOD COUNT 9.7 10^3/ul (4.8-10.8)
[2017-09-14 07:11] LABS: ALBUMIN 2.4 g/dl (3.3-4.9); ANION GAP 13 (8-16); BLOOD UREA NITROGEN 38 mg/dl (7-20); CALCIUM 7.4 mg/dl (8.4-10.2); CARBON DIOXIDE 22 mmol/L (21-31); CHLORIDE 104 mmol/L (97-110); CREATININE 2.94 mg/dl (0.61-1.24); GLUCOSE 120 mg/dl (70-220); MAGNESIUM 1.6 mg/dl (1.7-2.5); PHOSPHORUS 4.9 mg/dl (2.5-4.9); POTASSIUM 4.6 mmol/L (3.5-5.1); SODIUM 134 mmol/L (135-144)
[2017-09-14] MEDS: CALCIUM ACETATE 667 MG CAP GTB ×3 (07:59→16:57)
[2017-09-14] MEDS: INSULIN ASPART [NOVOLOG] 3 ML PEN SC ×7 (08:00→21:00)
[2017-09-14] MEDS: POLYETHYLENE GLYCOL 17 GM PACKET PO (09:00)
[2017-09-14] MEDS: AMLODIPINE 10 MG TAB PO (09:36)
[2017-09-14] MEDS: GUAIFENESIN LA 600 MG TABSR PO ×2 (09:36→21:11)
[2017-09-14] MEDS: LACTOBACILLUS RHAMNOSUS CAP PO (09:36)
[2017-09-14] MEDS: ASPIRIN (EC) 325 MG TAB PO (09:36)
[2017-09-14] MEDS: FUROSEMIDE 40 MG/4 ML CUP GTB (09:37)
[2017-09-14] MEDS: ENOXAPARIN 30 MG/0.3 ML SYG SC (09:38)
[2017-09-14] MEDS: ONDANSETRON 4 MG TAB PO (11:51)
[2017-09-14] MEDS: MAGNESIUM OXIDE 400 MG TAB PO ×2 (14:34→21:11)
[2017-09-14] MEDS: EPOETIN 3000 UNITS/1 ML INJ (ESRD) SC (17:04)
[2017-09-14] MEDS: FLUOXETINE 20 MG CAP PO (21:11)
[2017-09-15] MEDS: ACCU-CHEK XX (01:22)
[2017-09-15] MEDS: ALBUTEROL/IPRATROPIUM (NEB) 3 ML AMP HHN ×6 (03:38→21:00)
[2017-09-15] MEDS: LORAZEPAM 1 MG TAB PO (03:56)
[2017-09-15] MEDS: PANTOPRAZOLE (EC) 40 MG TAB PO (03:56)
[2017-09-15 05:15] LABS: ADD MAN DIFF? NO
[2017-09-15 05:23] LABS: WHITE BLOOD COUNT 9.6 10^3/ul (4.8-10.8)
[2017-09-15 05:23] LABS: BASOPHILS % 0.1 % (0.0-2.0); EOSINOPHILS # 0.3 10^3/ul (0.0-0.5); EOSINOPHILS % 3.1 % (0.0-7.0); HEMATOCRIT 25.3 % (42.0-52.0); HEMOGLOBIN 8.5 g/dl (14.0-18.0); LYMPHOCYTES # 1.5 10^3/ul (0.8-2.9); LYMPHOCYTES % 15.7 % (15.0-51.0); MEAN CORPUSCULAR HEMOGLOBIN 28.1 pg (29.0-33.0); MEAN CORPUSCULAR HGB CONC 33.6 g/dl (32.0-37.0); MEAN CORPUSCULAR VOLUME 83.5 fl (82.0-101.0); MEAN PLATELET VOLUME 8.8 fl (7.4-10.4); MONOCYTES % 10.9 % (0.0-11.0); NEUTROPHIL # 6.7 10^3/ul (1.6-7.5); NEUTROPHILS % 69.9 % (39.0-77.0); PLATELET COUNT 155 10^3/UL (140-415); RED BLOOD COUNT 3.03 10^6/ul (4.70-6.10); RED CELL DISTRIBUTION WIDTH 15.2 % (11.5-14.5)
[2017-09-15 06:15] LABS: ALBUMIN 2.5 g/dl (3.3-4.9); ANION GAP 15 (8-16); BLOOD UREA NITROGEN 40 mg/dl (7-20); CALCIUM 7.5 mg/dl (8.4-10.2); CARBON DIOXIDE 23 mmol/L (21-31); CHLORIDE 103 mmol/L (97-110); CREATININE 3.33 mg/dl (0.61-1.24); GLUCOSE 125 mg/dl (70-220); MAGNESIUM 1.7 mg/dl (1.7-2.5); PHOSPHORUS 4.6 mg/dl (2.5-4.9); POTASSIUM 4.8 mmol/L (3.5-5.1); SODIUM 136 mmol/L (135-144)
[2017-09-15] MEDS: OXYCODONE/ACETAMINOPHEN (10/325) TAB PO ×4 (06:36→22:17)
[2017-09-15] MEDS: INSULIN ASPART [NOVOLOG] 3 ML PEN SC ×7 (08:00→22:19)
[2017-09-15] MEDS: CALCIUM ACETATE 667 MG CAP GTB ×3 (08:12→17:04)
[2017-09-15] MEDS: FUROSEMIDE 40 MG/4 ML CUP GTB (09:00)
[2017-09-15] MEDS: AMLODIPINE 10 MG TAB PO (09:00)
[2017-09-15] MEDS: POLYETHYLENE GLYCOL 17 GM PACKET PO (09:00)
[2017-09-15] MEDS: ENOXAPARIN 30 MG/0.3 ML SYG SC (09:00)
[2017-09-15] MEDS: ASPIRIN (EC) 325 MG TAB PO (09:00)
[2017-09-15] MEDS: LACTOBACILLUS RHAMNOSUS CAP PO (09:29)
[2017-09-15] MEDS: MAGNESIUM OXIDE 400 MG TAB PO ×2 (09:29→22:16)
[2017-09-15] MEDS: GUAIFENESIN LA 600 MG TABSR PO ×2 (09:30→22:16)
[2017-09-15] MEDS: FLUOXETINE 20 MG CAP PO (22:16)
[2017-09-16] MEDS: ALBUTEROL/IPRATROPIUM (NEB) 3 ML AMP HHN ×6 (01:10→21:10)
[2017-09-16] MEDS: ACCU-CHEK XX (02:00)
[2017-09-16] MEDS: PANTOPRAZOLE (EC) 40 MG TAB PO (03:02)
[2017-09-16] MEDS: OXYCODONE/ACETAMINOPHEN (10/325) TAB PO ×4 (03:02→17:40)
[2017-09-16 05:57] LABS: ADD MAN DIFF? NO
[2017-09-16 06:07] LABS: BASOPHILS % 0.2 % (0.0-2.0); EOSINOPHILS # 0.3 10^3/ul (0.0-0.5); EOSINOPHILS % 2.8 % (0.0-7.0); HEMATOCRIT 25.6 % (42.0-52.0); HEMOGLOBIN 8.7 g/dl (14.0-18.0); LYMPHOCYTES # 1.5 10^3/ul (0.8-2.9); LYMPHOCYTES % 16.8 % (15.0-51.0); MEAN CORPUSCULAR HEMOGLOBIN 28.2 pg (29.0-33.0); MEAN CORPUSCULAR VOLUME 82.8 fl (82.0-101.0); MEAN PLATELET VOLUME 9.4 fl (7.4-10.4); MONOCYTE # 0.9 10^3/ul (0.3-0.9); MONOCYTES % 9.6 % (0.0-11.0); NEUTROPHIL # 6.2 10^3/ul (1.6-7.5); NEUTROPHILS % 70.1 % (39.0-77.0); PLATELET COUNT 142 10^3/UL (140-415); RED BLOOD COUNT 3.09 10^6/ul (4.70-6.10)
[2017-09-16 06:07] LABS: WHITE BLOOD COUNT 8.8 10^3/ul (4.8-10.8)
[2017-09-16 06:27] LABS: ANION GAP 13 (8-16); BLOOD UREA NITROGEN 24 mg/dl (7-20); CALCIUM 7.7 mg/dl (8.4-10.2); CARBON DIOXIDE 26 mmol/L (21-31); CHLORIDE 100 mmol/L (97-110); CREATININE 2.56 mg/dl (0.61-1.24); GLUCOSE 144 mg/dl (70-220); MAGNESIUM 1.8 mg/dl (1.7-2.5); PHOSPHORUS 3.9 mg/dl (2.5-4.9); POTASSIUM 3.9 mmol/L (3.5-5.1); SODIUM 135 mmol/L (135-144)
[2017-09-16] MEDS: LACTOBACILLUS RHAMNOSUS CAP PO (08:27)
[2017-09-16] MEDS: ASPIRIN (EC) 325 MG TAB PO (08:28)
[2017-09-16] MEDS: GUAIFENESIN LA 600 MG TABSR PO ×2 (08:28→21:07)
[2017-09-16] MEDS: POLYETHYLENE GLYCOL 17 GM PACKET PO (08:28)
[2017-09-16] MEDS: MAGNESIUM OXIDE 400 MG TAB PO ×2 (08:28→21:06)
[2017-09-16] MEDS: CALCIUM ACETATE 667 MG CAP GTB ×3 (08:28→17:41)
[2017-09-16] MEDS: AMLODIPINE 10 MG TAB PO (08:28)
[2017-09-16] MEDS: INSULIN ASPART [NOVOLOG] 3 ML PEN SC ×7 (08:30→21:00)
[2017-09-16] MEDS: ENOXAPARIN 30 MG/0.3 ML SYG SC (08:33)
[2017-09-16] MEDS: FUROSEMIDE 40 MG/4 ML CUP GTB (08:38)
[2017-09-16] MEDS: LORAZEPAM 1 MG TAB PO ×2 (09:38→22:59)
[2017-09-16] MEDS: EPOETIN 3000 UNITS/1 ML INJ (ESRD) SC (17:45)
[2017-09-16] MEDS: FLUOXETINE 20 MG CAP PO (21:07)
[2017-09-17] MEDS: ALBUTEROL/IPRATROPIUM (NEB) 3 ML AMP HHN ×6 (00:56→19:54)
[2017-09-17] MEDS: OXYCODONE/ACETAMINOPHEN (10/325) TAB PO ×5 (01:17→21:20)
[2017-09-17] MEDS: ACCU-CHEK XX (02:00)
[2017-09-17] MEDS: PANTOPRAZOLE (EC) 40 MG TAB PO (05:28)
[2017-09-17] MEDS: INSULIN ASPART [NOVOLOG] 3 ML PEN SC ×7 (08:00→20:31)
[2017-09-17] MEDS: CALCIUM ACETATE 667 MG CAP GTB ×3 (08:16→17:07)
[2017-09-17] MEDS: FUROSEMIDE 40 MG/4 ML CUP GTB (08:17)
[2017-09-17] MEDS: ENOXAPARIN 30 MG/0.3 ML SYG SC (08:18)
[2017-09-17] MEDS: GUAIFENESIN LA 600 MG TABSR PO ×2 (08:19→20:55)
[2017-09-17] MEDS: MAGNESIUM OXIDE 400 MG TAB PO ×2 (08:19→20:55)
[2017-09-17] MEDS: LACTOBACILLUS RHAMNOSUS CAP PO (08:19)
[2017-09-17] MEDS: ASPIRIN (EC) 325 MG TAB PO (08:19)
[2017-09-17] MEDS: POLYETHYLENE GLYCOL 17 GM PACKET PO (08:20)
[2017-09-17] MEDS: AMLODIPINE 10 MG TAB PO (08:20)
[2017-09-17] MEDS: HYDROCODONE/APAP (5/325) TAB PO (08:33)
[2017-09-17] MEDS: LORAZEPAM 1 MG TAB PO (18:48)
[2017-09-17] MEDS: FLUOXETINE 20 MG CAP PO (20:55)
[2017-09-18] MEDS: ALBUTEROL/IPRATROPIUM (NEB) 3 ML AMP HHN ×6 (00:49→20:10)
[2017-09-18] MEDS: OXYCODONE/ACETAMINOPHEN (10/325) TAB PO ×5 (01:45→18:10)
[2017-09-18] MEDS: ACCU-CHEK XX (02:00)
[2017-09-18] MEDS: PANTOPRAZOLE (EC) 40 MG TAB PO (05:58)
[2017-09-18] MEDS: INSULIN ASPART [NOVOLOG] 3 ML PEN SC ×7 (08:00→21:00)
[2017-09-18] MEDS: CALCIUM ACETATE 667 MG CAP GTB ×3 (08:26→17:02)
[2017-09-18] MEDS: GUAIFENESIN LA 600 MG TABSR PO ×2 (08:26→20:26)
[2017-09-18] MEDS: LACTOBACILLUS RHAMNOSUS CAP PO (08:26)
[2017-09-18] MEDS: AMLODIPINE 10 MG TAB PO (08:26)
[2017-09-18] MEDS: MAGNESIUM OXIDE 400 MG TAB PO ×2 (08:26→20:26)
[2017-09-18] MEDS: ASPIRIN (EC) 325 MG TAB PO (08:26)
[2017-09-18] MEDS: FUROSEMIDE 40 MG/4 ML CUP GTB (08:27)
[2017-09-18] MEDS: ENOXAPARIN 30 MG/0.3 ML SYG SC (08:28)
[2017-09-18] MEDS: POLYETHYLENE GLYCOL 17 GM PACKET PO (08:29)
[2017-09-18] MEDS: LISINOPRIL 5 MG TAB PO (12:06)
[2017-09-18] MEDS: EPOETIN 3000 UNITS/1 ML INJ (ESRD) SC (18:11)
[2017-09-18] MEDS: LORAZEPAM 1 MG TAB PO (20:23)
[2017-09-18] MEDS: FLUOXETINE 20 MG CAP PO (20:26)
[2017-09-19] MEDS: ALBUTEROL/IPRATROPIUM (NEB) 3 ML AMP HHN ×6 (00:31→20:03)
[2017-09-19] MEDS: OXYCODONE/ACETAMINOPHEN (10/325) TAB PO ×5 (00:48→20:39)
[2017-09-19] MEDS: ACCU-CHEK XX ×2 (00:48→21:58)
[2017-09-19] MEDS: PANTOPRAZOLE (EC) 40 MG TAB PO (05:24)
[2017-09-19 05:39] LABS: ADD MAN DIFF? NO
[2017-09-19 05:42] LABS: BASOPHILS % 0.1 % (0.0-2.0); EOSINOPHILS # 0.2 10^3/ul (0.0-0.5); HEMATOCRIT 26.4 % (42.0-52.0); HEMOGLOBIN 8.6 g/dl (14.0-18.0); LYMPHOCYTES # 1.5 10^3/ul (0.8-2.9); MEAN CORPUSCULAR HEMOGLOBIN 27.7 pg (29.0-33.0); MEAN CORPUSCULAR HGB CONC 32.6 g/dl (32.0-37.0); MEAN CORPUSCULAR VOLUME 85.2 fl (82.0-101.0); MEAN PLATELET VOLUME 8.7 fl (7.4-10.4); MONOCYTE # 0.6 10^3/ul (0.3-0.9); MONOCYTES % 8.9 % (0.0-11.0); NEUTROPHIL # 4.6 10^3/ul (1.6-7.5); NEUTROPHILS % 65.6 % (39.0-77.0); PLATELET COUNT 185 10^3/UL (140-415); RED CELL DISTRIBUTION WIDTH 15.3 % (11.5-14.5)
[2017-09-19 06:31] LABS: ANION GAP 13 (8-16); BLOOD UREA NITROGEN 23 mg/dl (7-20); CALCIUM 7.3 mg/dl (8.4-10.2); CARBON DIOXIDE 23 mmol/L (21-31); CHLORIDE 105 mmol/L (97-110); GLUCOSE 153 mg/dl (70-220); PHOSPHORUS 4.4 mg/dl (2.5-4.9); POTASSIUM 5.4 mmol/L (3.5-5.1); SODIUM 136 mmol/L (135-144)
[2017-09-19] MEDS: CALCIUM ACETATE 667 MG CAP GTB ×3 (07:51→17:30)
[2017-09-19] MEDS: INSULIN ASPART [NOVOLOG] 3 ML PEN SC ×7 (07:52→20:38)
[2017-09-19] MEDS: FUROSEMIDE 40 MG/4 ML CUP GTB (08:16)
[2017-09-19] MEDS: POLYETHYLENE GLYCOL 17 GM PACKET PO (08:17)
[2017-09-19] MEDS: LISINOPRIL 5 MG TAB PO (08:17)
[2017-09-19] MEDS: AMLODIPINE 10 MG TAB PO (08:17)
[2017-09-19] MEDS: ENOXAPARIN 30 MG/0.3 ML SYG SC (08:18)
[2017-09-19] MEDS: MAGNESIUM OXIDE 400 MG TAB PO ×3 (08:36→20:36)
[2017-09-19] MEDS: LACTOBACILLUS RHAMNOSUS CAP PO ×2 (08:36→10:23)
[2017-09-19] MEDS: ASPIRIN (EC) 325 MG TAB PO (08:36)
[2017-09-19] MEDS: GUAIFENESIN LA 600 MG TABSR PO ×3 (08:37→20:36)
[2017-09-19] MEDS: LORAZEPAM 1 MG TAB PO (13:01)
[2017-09-19] MEDS: FLUOXETINE 20 MG CAP PO (20:36)
[2017-09-20] MEDS: ALBUTEROL/IPRATROPIUM (NEB) 3 ML AMP HHN ×6 (00:45→20:20)
[2017-09-20] MEDS: OXYCODONE/ACETAMINOPHEN (10/325) TAB PO ×5 (03:35→21:39)
[2017-09-20] MEDS: LORAZEPAM 1 MG TAB PO (04:35)
[2017-09-20] MEDS: PANTOPRAZOLE (EC) 40 MG TAB PO (05:30)
[2017-09-20] MEDS: INSULIN ASPART [NOVOLOG] 3 ML PEN SC ×6 (08:00→20:26)
[2017-09-20] MEDS: CALCIUM ACETATE 667 MG CAP GTB ×3 (08:09→17:24)
[2017-09-20] MEDS: ASPIRIN (EC) 325 MG TAB PO (08:38)
[2017-09-20] MEDS: FUROSEMIDE 40 MG/4 ML CUP GTB (08:38)
[2017-09-20] MEDS: GUAIFENESIN LA 600 MG TABSR PO ×2 (08:39→20:23)
[2017-09-20] MEDS: AMLODIPINE 10 MG TAB PO (08:40)
[2017-09-20] MEDS: LISINOPRIL 5 MG TAB PO ×2 (08:40→12:20)
[2017-09-20] MEDS: LACTOBACILLUS RHAMNOSUS CAP PO (08:40)
[2017-09-20] MEDS: MAGNESIUM OXIDE 400 MG TAB PO ×2 (08:40→20:23)
[2017-09-20] MEDS: ENOXAPARIN 30 MG/0.3 ML SYG SC (08:41)
[2017-09-20] MEDS: POLYETHYLENE GLYCOL 17 GM PACKET PO (08:41)
[2017-09-20] MEDS: HEPARIN 5,000 UNIT/0.5 ML VIAL SC ×2 (13:16→21:40)
[2017-09-20] MEDS: FLUOXETINE 20 MG CAP PO (20:23)
[2017-09-20] MEDS: INSULIN GLARGINE [LANtus] 3 ML PEN SC (20:25)
[2017-09-21] MEDS: ALBUTEROL/IPRATROPIUM (NEB) 3 ML AMP HHN ×6 (00:45→20:20)
[2017-09-21] MEDS: ACCU-CHEK XX (01:41)
[2017-09-21] MEDS: OXYCODONE/ACETAMINOPHEN (10/325) TAB PO ×5 (01:42→21:37)
[2017-09-21] MEDS: PANTOPRAZOLE (EC) 40 MG TAB PO (05:15)
[2017-09-21] MEDS: HEPARIN 5,000 UNIT/0.5 ML VIAL SC ×3 (05:17→21:37)
[2017-09-21] MEDS: LORAZEPAM 1 MG TAB PO (05:18)
[2017-09-21 05:51] LABS: ADD MAN DIFF? NO
[2017-09-21 05:54] LABS: WHITE BLOOD COUNT 6.4 10^3/ul (4.8-10.8)
[2017-09-21 05:54] LABS: BASOPHILS % 0.3 % (0.0-2.0); EOSINOPHILS # 0.4 10^3/ul (0.0-0.5); EOSINOPHILS % 6.1 % (0.0-7.0); HEMATOCRIT 25.4 % (42.0-52.0); HEMOGLOBIN 8.4 g/dl (14.0-18.0); LYMPHOCYTES % 31.2 % (15.0-51.0); MEAN CORPUSCULAR HEMOGLOBIN 28.2 pg (29.0-33.0); MEAN CORPUSCULAR HGB CONC 33.1 g/dl (32.0-37.0); MEAN CORPUSCULAR VOLUME 85.2 fl (82.0-101.0); MEAN PLATELET VOLUME 8.6 fl (7.4-10.4); MONOCYTE # 0.6 10^3/ul (0.3-0.9); NEUTROPHIL # 3.3 10^3/ul (1.6-7.5); NEUTROPHILS % 52.1 % (39.0-77.0); PLATELET COUNT 192 10^3/UL (140-415); RED BLOOD COUNT 2.98 10^6/ul (4.70-6.10); RED CELL DISTRIBUTION WIDTH 15.3 % (11.5-14.5)
[2017-09-21 06:47] LABS: ANION GAP 12 (8-16); BLOOD UREA NITROGEN 27 mg/dl (7-20); CALCIUM 7.3 mg/dl (8.4-10.2); CARBON DIOXIDE 23 mmol/L (21-31); CHLORIDE 105 mmol/L (97-110); CREATININE 2.98 mg/dl (0.61-1.24); GLUCOSE 86 mg/dl (70-220); PHOSPHORUS 4.4 mg/dl (2.5-4.9); POTASSIUM 4.8 mmol/L (3.5-5.1); SODIUM 135 mmol/L (135-144)
[2017-09-21] MEDS: INSULIN ASPART [NOVOLOG] 3 ML PEN SC ×4 (08:00→20:46)
[2017-09-21] MEDS: CALCIUM ACETATE 667 MG CAP GTB ×3 (08:12→17:33)
[2017-09-21] MEDS: LACTOBACILLUS RHAMNOSUS CAP PO (08:28)
[2017-09-21] MEDS: GUAIFENESIN LA 600 MG TABSR PO ×2 (08:28→20:43)
[2017-09-21] MEDS: ASPIRIN (EC) 325 MG TAB PO (08:28)
[2017-09-21] MEDS: LISINOPRIL 10 MG TAB PO (08:28)
[2017-09-21] MEDS: FUROSEMIDE 40 MG/4 ML CUP GTB (08:28)
[2017-09-21] MEDS: MAGNESIUM OXIDE 400 MG TAB PO ×2 (08:29→20:43)
[2017-09-21] MEDS: AMLODIPINE 10 MG TAB PO (08:29)
[2017-09-21] MEDS: POLYETHYLENE GLYCOL 17 GM PACKET PO (08:30)
[2017-09-21] MEDS: EPOETIN 3000 UNITS/1 ML INJ (ESRD) SC (17:34)
[2017-09-21] MEDS: FLUOXETINE 20 MG CAP PO (20:43)
[2017-09-21] MEDS: INSULIN GLARGINE [LANtus] 3 ML PEN SC (20:45)
[2017-09-22] MEDS: ALBUTEROL/IPRATROPIUM (NEB) 3 ML AMP HHN ×6 (00:20→20:00)
[2017-09-22] MEDS: ACCU-CHEK XX (02:00)
[2017-09-22] MEDS: OXYCODONE/ACETAMINOPHEN (10/325) TAB PO ×4 (02:26→17:31)
[2017-09-22] MEDS: PANTOPRAZOLE (EC) 40 MG TAB PO (05:31)
[2017-09-22] MEDS: HEPARIN 5,000 UNIT/0.5 ML VIAL SC ×3 (05:32→21:00)
[2017-09-22] MEDS: LORAZEPAM 1 MG TAB PO ×2 (05:33→21:05)
[2017-09-22 05:54] LABS: ADD MAN DIFF? NO
[2017-09-22 06:00] LABS: BASOPHILS % 0.4 % (0.0-2.0); EOSINOPHILS # 0.4 10^3/ul (0.0-0.5); EOSINOPHILS % 5.2 % (0.0-7.0); HEMATOCRIT 24.9 % (42.0-52.0); HEMOGLOBIN 8.3 g/dl (14.0-18.0); LYMPHOCYTES # 2.3 10^3/ul (0.8-2.9); LYMPHOCYTES % 31.3 % (15.0-51.0); MEAN CORPUSCULAR HEMOGLOBIN 27.8 pg (29.0-33.0); MEAN CORPUSCULAR HGB CONC 33.3 g/dl (32.0-37.0); MEAN CORPUSCULAR VOLUME 83.3 fl (82.0-101.0); MEAN PLATELET VOLUME 8.3 fl (7.4-10.4); MONOCYTE # 0.6 10^3/ul (0.3-0.9); MONOCYTES % 8.6 % (0.0-11.0); NEUTROPHIL # 3.9 10^3/ul (1.6-7.5); NEUTROPHILS % 54.2 % (39.0-77.0); PLATELET COUNT 192 10^3/UL (140-415); RED BLOOD COUNT 2.99 10^6/ul (4.70-6.10); RED CELL DISTRIBUTION WIDTH 15.4 % (11.5-14.5)
[2017-09-22 06:00] LABS: WHITE BLOOD COUNT 7.2 10^3/ul (4.8-10.8)
[2017-09-22 06:30] LABS: ALBUMIN 2.5 g/dl (3.3-4.9); ANION GAP 11 (8-16); BLOOD UREA NITROGEN 29 mg/dl (7-20); CALCIUM 7.3 mg/dl (8.4-10.2); CARBON DIOXIDE 23 mmol/L (21-31); CHLORIDE 104 mmol/L (97-110); GLUCOSE 112 mg/dl (70-220); MAGNESIUM 2.1 mg/dl (1.7-2.5); PHOSPHORUS 4.6 mg/dl (2.5-4.9); SODIUM 133 mmol/L (135-144)
[2017-09-22] MEDS: INSULIN ASPART [NOVOLOG] 3 ML PEN SC ×4 (08:00→20:53)
[2017-09-22] MEDS: GUAIFENESIN LA 600 MG TABSR PO ×2 (08:04→20:50)
[2017-09-22] MEDS: CALCIUM ACETATE 667 MG CAP GTB ×3 (08:04→17:33)
[2017-09-22] MEDS: MAGNESIUM OXIDE 400 MG TAB PO ×2 (08:05→20:50)
[2017-09-22] MEDS: ASPIRIN (EC) 325 MG TAB PO (08:06)
[2017-09-22] MEDS: LACTOBACILLUS RHAMNOSUS CAP PO (08:06)
[2017-09-22] MEDS: AMLODIPINE 10 MG TAB PO (08:08)
[2017-09-22] MEDS: FUROSEMIDE 40 MG/4 ML CUP GTB (08:08)
[2017-09-22] MEDS: POLYETHYLENE GLYCOL 17 GM PACKET PO (08:08)
[2017-09-22] MEDS: LISINOPRIL 10 MG TAB PO (08:09)
[2017-09-22] MEDS: FLUOXETINE 20 MG CAP PO (20:50)
[2017-09-22] MEDS: INSULIN GLARGINE [LANtus] 3 ML PEN SC (20:52)
[2017-09-23] MEDS: ALBUTEROL/IPRATROPIUM (NEB) 3 ML AMP HHN ×4 (00:10→13:37)
[2017-09-23] MEDS: OXYCODONE/ACETAMINOPHEN (10/325) TAB PO ×4 (00:29→13:05)
[2017-09-23] MEDS: ACCU-CHEK XX (02:00)
[2017-09-23] MEDS: PANTOPRAZOLE (EC) 40 MG TAB PO (05:16)
[2017-09-23] MEDS: HEPARIN 5,000 UNIT/0.5 ML VIAL SC (05:17)
[2017-09-23 06:32] LABS: ADD MAN DIFF? NO
[2017-09-23 06:35] LABS: WHITE BLOOD COUNT 6.7 10^3/ul (4.8-10.8)
[2017-09-23 06:35] LABS: BASOPHILS % 0.4 % (0.0-2.0); EOSINOPHILS # 0.2 10^3/ul (0.0-0.5); EOSINOPHILS % 3.4 % (0.0-7.0); HEMATOCRIT 24.2 % (42.0-52.0); LYMPHOCYTES # 1.8 10^3/ul (0.8-2.9); LYMPHOCYTES % 26.4 % (15.0-51.0); MEAN CORPUSCULAR HEMOGLOBIN 27.8 pg (29.0-33.0); MEAN CORPUSCULAR HGB CONC 33.1 g/dl (32.0-37.0); MEAN PLATELET VOLUME 8.6 fl (7.4-10.4); MONOCYTE # 0.7 10^3/ul (0.3-0.9); MONOCYTES % 10.8 % (0.0-11.0); NEUTROPHILS % 58.7 % (39.0-77.0); PLATELET COUNT 160 10^3/UL (140-415); RED BLOOD COUNT 2.88 10^6/ul (4.70-6.10); RED CELL DISTRIBUTION WIDTH 15.3 % (11.5-14.5)
[2017-09-23 07:02] LABS: ALBUMIN 2.3 g/dl (3.3-4.9); ANION GAP 6 (8-16); BLOOD UREA NITROGEN 16 mg/dl (7-20); CALCIUM 7.3 mg/dl (8.4-10.2); CARBON DIOXIDE 27 mmol/L (21-31); CHLORIDE 104 mmol/L (97-110); GLUCOSE 80 mg/dl (70-220); PHOSPHORUS 3.7 mg/dl (2.5-4.9); POTASSIUM 3.3 mmol/L (3.5-5.1); SODIUM 134 mmol/L (135-144)
[2017-09-23] MEDS: INSULIN ASPART [NOVOLOG] 3 ML PEN SC ×2 (08:00→11:57)
[2017-09-23] MEDS: CALCIUM ACETATE 667 MG CAP GTB ×2 (08:13→12:28)
[2017-09-23] MEDS: LACTOBACILLUS RHAMNOSUS CAP PO (08:14)
[2017-09-23] MEDS: ASPIRIN (EC) 325 MG TAB PO (08:14)
[2017-09-23] MEDS: GUAIFENESIN LA 600 MG TABSR PO (08:14)
[2017-09-23] MEDS: LORAZEPAM 1 MG TAB PO ×2 (08:14→12:28)
[2017-09-23] MEDS: FUROSEMIDE 40 MG/4 ML CUP GTB (08:15)
[2017-09-23] MEDS: POLYETHYLENE GLYCOL 17 GM PACKET PO (08:15)
[2017-09-23] MEDS: MAGNESIUM OXIDE 400 MG TAB PO (08:15)
[2017-09-23] MEDS: AMLODIPINE 10 MG TAB PO (08:15)
[2017-09-23] MEDS: LISINOPRIL 10 MG TAB PO (08:15)
[2017-09-23] MEDS ORDERED: morphine (ER) 30 MG TAB PO (13:00)
[2017-09-23] MEDS: oxyCODONE (CR) 20 MG TAB [oxyCONTIN] PO (14:35)
[2017-09-23] MEDS ORDERED: INSULIN GLARGINE [LANtus] 3 ML PEN SC (20:00)
== END 2017-09-23 14:45 | disposition home or self-care (01) | DRG 698 ==
LOC: E/R 11:08 → PP2 13:30
PROVIDERS: Family Medicine
PROC: 02H633Z Insertion of Infusion Device into Right Atrium, Percutaneous Approach (ICD-10-PCS; principal; 2017-09-09 13:26)
PROC: 0JH63XZ Insertion of Tunneled Vascular Access Device into Chest Subcutaneous Tissue and Fascia, Percutaneous Approach (ICD-10-PCS; 2017-09-09 13:26)
PROC: 5A1D70Z Performance of Urinary Filtration, Intermittent, Less than 6 Hours Per Day (ICD-10-PCS; 2017-09-09 13:26)
DX: T83.511A Infection and inflammatory reaction due to indwelling urethral catheter, initial encounter (principal); G93.49 Other encephalopathy; E11.21 Type 2 diabetes mellitus with diabetic nephropathy; N17.9 Acute kidney failure, unspecified; E11.649 Type 2 diabetes mellitus with hypoglycemia without coma; E87.1 Hypo-osmolality and hyponatremia; N18.4 Chronic kidney disease, stage 4 (severe); B37.49 Other urogenital candidiasis; N18.6 End stage renal disease; N39.0 Urinary tract infection, site not specified; E87.5 Hyperkalemia; I12.9 Hypertensive chronic kidney disease with stage 1 through stage 4 chronic kidney disease, or unspecified chronic kidney disease; E03.9 Hypothyroidism, unspecified; R33.9 Retention of urine, unspecified; N31.9 Neuromuscular dysfunction of bladder, unspecified; N30.90 Cystitis, unspecified without hematuria; B96.89 Other specified bacterial agents as the cause of diseases classified elsewhere; N40.0 Benign prostatic hyperplasia without lower urinary tract symptoms; M25.571 Pain in right ankle and joints of right foot; Z59.0 Homelessness
CPT/HCPCS: 36415; 71010; 73610; 73610-RT; 73630-50; 76775; 80048; 80053; 80069; 81001; 81003; 82306; 82533; 82540; 82570; 82962; 83036; 83605; 83735; 83930; 83935; 83970; 84100; 84155; 84156; 84165; 84166; 84300; 84436; 84439; 84443; 84484; 85014; 85018; 85025; 85610; 85730; 86703; 86704; 86709; 86803; 87040; 87081; 87086; 87340; 89190; 90935; 93005; 94640; 94664; 96374; 96375; 97110; 97116; 97162; 97166; 97530; 97535; 99285-25